=== PATIENT | male | born 1955 | race Hispanic/Latino ===

== ENCOUNTER 2016-11-27 13:21 | Emergency (ER) | payer MEDICARE, OTHER ==
[2016-11-27 13:21] VITALS: BMI 28.0
[2016-11-27 13:27] VITALS: BP 129/87; TEMP 98; O2SAT 100
--- NOTE | 2016-11-27 14:23 | ED PDOC ---
HPI: General Adult Time Seen by Provider: 11/27/16 13:25 Chief Complaint (Nursing): Weakness/Neurological Deficit Chief Complaint (Provider): Weakness History Per: Patient, Family (Brother) History/Exam Limitations: no limitations Current Symptoms Are (Timing): Still Present Additional Complaint(s): Guicho is a 61 y/o male brought to the ED by brother for evaluation of bed sore on his back. Per brother, patient has a history of limited mobility which he attributes to patient's chronic sleeping pill usage. however pt has recently been weaned off those meds. Patient has generalized weakness but denies any pain , fever, or vomiting. Brother's main concern is the back sore. Patient is not receiving any home health care. PMD in [place] prescribed a steroid cream, with minimal relief. pt denies any complaints at si time. PMD: aGy Saunders Past Medical History Reviewed: Historical Data, Nursing Documentation, Vital Signs Vital Signs: Last Vital Signs Temp 98.0 F 11/27/16 13:25 Pulse 74 11/27/16 14:45 Resp 16 11/27/16 16:45 BP 129/87 11/27/16 13:25 Pulse Ox 100 11/27/16 16:37 - Medical History PMH: Seizures (epilepsy for many years) Denies: Arthritis, Asthma, Atrial Fibrillation, CHF, COPD, Diabetes, HTN, Hypercholesterolemia Other PMH: chronic sleeping pill usage - Surgical History Surgical History: Back Surgery Denies: CABG, Pacemaker - Family History Family History: States: CAD - Living Arrangements Living Arrangements: With Family - Social History Current smoker - smoking cessation education provided: No Alcohol: None Drugs: Denies - Home Medications Home Medications: Ambulatory Orders Medication Instructions Recorded Clonazepam [Klonopin] 0.5 mg PO TID 04/25/16 Levetiracetam [Keppra] 1,500 mg PO BID 04/25/16 OLANZapine [Zyprexa] 10 mg PO HS 04/25/16 Topiramate [Topamax] 200 mg PO BID 04/25/16 Zolpidem [Ambien] 15 mg PO HS 04/25/16 - Allergies Allergies/Adverse Reactions: Allergies Allergy/AdvReac Type Severity Reaction Status Date / Time No Known Allergies Allergy Verified 11/27/16 13:25 Review of Systems ROS Statement: Except As Marked, All Systems Reviewed And Found Negative Constitutional: Negative for: Fever Gastrointestinal: Negative for: Vomiting Musculoskeletal: Negative for: Other (Pain) Skin: Positive for: Lesions (Bed sore on back) Neurological: Positive for: Weakness (generalized) Physical Exam - Reviewed Nursing Documentation Reviewed: Yes Vital Signs Reviewed: Yes - Physical Exam Appears: Positive for: Non-toxic, No Acute Distress (Apppears slightly stiff) Head Exam: Positive for: ATRAUMATIC, NORMAL INSPECTION, NORMOCEPHALIC Skin: Positive for: Normal Color, Warm, Dry Eye Exam: Positive for: EOMI, Normal appearance, PERRL Neck: Positive for: Normal, Painless ROM, Supple Cardiovascular/Chest: Positive for: Regular Rate, Rhythm. Negative for: Murmur Respiratory: Positive for: Normal Breath Sounds. Negative for: Accessory Muscle Use Gastrointestinal/Abdominal: Positive for: Normal Exam, Soft. Negative for: Tenderness Back: Positive for: Other (stage I sacral ulcer, no dischargem, no cellulitis) Extremity: Positive for: Normal ROM, Other (moving all four extremities). Negative for: Tenderness, Deformity Neurologic/Psych: Positive for: Alert (x3), dining service worker II-XII, Oriented - Laboratory Results Result Diagrams: 11/27/16 14:45 11/27/16 14:45 - ECG O2 Sat by Pulse Oximetry: 100 (RA) Pulse Ox Interpretation: Normal Medical Decision Making Medical Decision Making: Time: 13:57 Initial Plan:bed sore encouraged pt to continue to follow up with primary doctor --Blood work --Pending reevaluation and disposition 1635 labs show no signs of infection pt afebrile pt feels fine on reevaluation discussed plan with pt and son and they are agreeable to dc pt and outpt follow up -Outpatient social studies department chair information sheet given to pt Scribe Attestation: Documented by Shira Drummond & Biju Pringle, acting as a scribe for Haviva Y Ria MD Provider Scribe Attestation: All medical record entries made by the Scribe were at my direction and personally dictated by me. I have reviewed the chart and agree that the record accurately reflects my personal performance of the history, physical exam, medical decision making, and the department course for this patient. I have also personally directed, reviewed, and agree with the discharge instructions and disposition. Disposition - Clinical Impression Clinical Impression: Sacral ulcer - Patient ED Disposition Is Patient to be Admitted: No Counseled Patient/Family Regarding: Studies Performed, Diagnosis, Need For Followup - Disposition Referrals: [facility] [Outside] [facility] [Outside] [facility] [Outside] Disposition: Routine/Home Disposition Time: 15:00 Condition: IMPROVED Additional Instructions: follow up with your primary doctor in 1-2 days return to the ED with any worsening or concerning symptoms. Instructions: Acute Wound Care (ED) Forms: [employer] (Syrian)
[2016-11-27 14:55] VITALS: PULSE 74
[2016-11-27 15:05] LABS: BASO % 0.5 % (0.0-2.0); EOS # 0.1 K/uL (0.0-0.7); EOS % 1.7 % (0.0-4.0); HEMATOCRIT 38.5 % (35.0-51.0); LYMPH # 1.8 K/uL (1.0-4.3); LYMPH % 21.3 % (20.0-40.0); MEAN CELL VOLUME 91.3 fl (80.0-94.0); MEAN CORPUSCULAR HEMOGLOBIN 30.2 pg (27.0-31.0); MEAN CORPUSCULAR HGB CONC 33.1 g/dL (33.0-37.0); MEAN PLATELET VOLUME 8.1 fl (7.2-11.7); MONO # 0.9 K/uL (0.0-0.8); MONO % 10.3 % (0.0-10.0); NEUT # 5.7 K/uL (1.8-7.0); NEUT % 66.2 % (50.0-75.0); RED CELL DISTRIBUTION WIDTH 14.4 % (11.5-14.5); WHITE BLOOD COUNT 8.6 K/uL (4.8-10.8)
[2016-11-27 15:19] LABS: ALB/GLOB RATIO 1.4 (1.0-2.1); ALKALINE PHOSPHATASE 78 U/L (38-126); ALT/SGPT 44 U/L (21-72); AST/SGOT 127 U/L (17-59); BILIRUBIN,TOTAL 0.7 mg/dl (0.2-1.3); BLOOD UREA NITROGEN 18 mg/dl (9-20); CALCIUM 9.6 mg/dL (8.4-10.2); CARBON DIOXIDE 23 mmol/L (22-30); CHLORIDE 106 mmol/L (98-107); GFR AFRICAN-AMERICAN > 60; GLUCOSE,RANDOM 91 mg/dL (75-110); SODIUM 139 mmol/l (132-148); TOTAL PROTEIN 7.2 G/DL (6.3-8.2)
[2016-11-27 15:20] LABS: POTASSIUM 4.5 MMOL/L (3.6-5.0)
[2016-11-27 16:47] VITALS: RESP 16
== END 2016-11-27 16:45 | disposition home or self-care (01) ==
LOC: H.ER 13:21
DX: L98.429 Non-pressure chronic ulcer of back with unspecified severity (principal)

== ENCOUNTER 2016-11-30 14:10 | Emergency (ER) | payer MEDICARE, OTHER ==
[2016-11-30 14:10] VITALS: BMI 28.0
[2016-11-30 14:15] VITALS: RESP 18
[2016-11-30 15:02] LABS: VENOUS BLOOD GAS BASE EXCESS 0.6 mmol/L (0.0-2.0); VENOUS BLOOD GAS PCO2 47 mmHg (40-60); VENOUS BLOOD PH 7.36 (7.32-7.43)
--- NOTE | 2016-11-30 15:18 | ED PDOC ---
Syncope/Near Syncope/Dizziness Time Seen by Provider: 11/30/16 14:17 Chief Complaint (Nursing): Weakness/Neurological Deficit Chief Complaint (Provider): Weakness/Neurological Deficit History Per: Patient, Family (brother) History/Exam Limitations: no limitations Onset/Duration Of Symptoms: Days (x4) Current Symptoms Are (Timing): Still Present Additional Complaint(s): Guicho Blandon is a 61 year old male with previous medical history of seizures , insomnia, cervical spine disease and substance abuse, who presents to the emergency department, accompanied by his brother for a evaluation of generalized weakness associated with right sequelae wound ongoing for 4 days. Denied any fever, chills, chest pain, shortness of breath, nausea, vomiting or abdomen pain. Patient's brother reported that patient progressively less active and concerned for possible stroke. PMD: none provided Past Medical History Reviewed: Historical Data, Nursing Documentation, Vital Signs Vital Signs: Last Vital Signs Temp 98.0 F 11/30/16 14:13 Pulse 91 H 11/30/16 14:13 Resp 18 11/30/16 14:13 BP 155/89 H 11/30/16 14:13 Pulse Ox 99 11/30/16 14:13 - Medical History PMH: Seizures (epilepsy for many years) Denies: Arthritis, Asthma, Atrial Fibrillation, CHF, COPD, Diabetes, HTN, Hypercholesterolemia - Surgical History Surgical History: Back Surgery Denies: CABG, Pacemaker - Family History Family History: States: CAD - Social History Current smoker - smoking cessation education provided: No Alcohol: None Drugs: Prescription medications (xanax) - Home Medications Home Medications: Ambulatory Orders Medication Instructions Recorded Clonazepam [Klonopin] 0.5 mg PO TID 04/25/16 Levetiracetam [Keppra] 1,500 mg PO BID 04/25/16 Topiramate [Topamax] 200 mg PO BID 04/25/16 Zolpidem [Ambien] 15 mg PO HS 04/25/16 - Allergies Allergies/Adverse Reactions: Allergies Allergy/AdvReac Type Severity Reaction Status Date / Time No Known Allergies Allergy Verified 11/27/16 13:25 Review of Systems ROS Statement: Except As Marked, All Systems Reviewed And Found Negative Constitutional: Positive for: Weakness (generalized). Negative for: Fever, Chills Cardiovascular: Negative for: Chest Pain Respiratory: Negative for: Shortness of Breath Gastrointestinal: Positive for: Rectal Pain (right sequelae wound). Negative for: Nausea, Vomiting, Abdominal Pain Physical Exam - Reviewed Nursing Documentation Reviewed: Yes Vital Signs Reviewed: Yes - Physical Exam Appears: Positive for: Well, Non-toxic, No Acute Distress Head Exam: Positive for: ATRAUMATIC, NORMAL INSPECTION, NORMOCEPHALIC Eye Exam: Positive for: Normal appearance, EOMI (normal visual field), PERRL. Negative for: Nystagmus Neck: Positive for: Limited ROM (permanent flex of neck due to c-spine disease) . Negative for: Normal Cardiovascular/Chest: Positive for: Regular Rate, Rhythm. Negative for: Chest Non Tender Respiratory: Positive for: Normal Breath Sounds. Negative for: Respiratory Distress Gastrointestinal/Abdominal: Positive for: Normal Exam, Bowel Sounds, Soft. Negative for: Tenderness Neurologic/Psych: Positive for: Alert (and awake), sanitation lead II-XII, Oriented. Negative for: Motor/Sensory Deficits, Aphasia - Laboratory Results Result Diagrams: 11/30/16 14:35 11/30/16 14:35 - ECG O2 Sat by Pulse Oximetry: 99 (RA) Pulse Ox Interpretation: Normal Medical Decision Making Medical Decision Making: Initial Impression: Generalized weakness Differential Diagnosis: Infection; Electrolyte abnormalities Initial Plan: * CT head without contrast * EKG * Alcohol serum * ProBNP * Labs * Drug screen, urine * Troponin I * Urine dipstick * PTT * Patient * Chest x-ray * Blood culture * Urine culture * Wound culture * Accuchek * Urinalysis Time: 1601 --CT head FINDINGS: HEMORRHAGE: No acute parenchymal, subarachnoid or extra-axial hemorrhage. BRAIN: Small elliptical shaped area of low attenuation right frontal subcortical white matter may represent a chronic infarct. There are several tiny -punctate calcifications seen scattered throughout both cerebral hemispheres nonspecific. Clinical correlation recommended. No evidence of parenchymal nor extra-axial mass or collection. Mild generalized volume loss. VENTRICLES: No obstructive hydrocephalus. CALVARIUM: There are no acute calvarial fractures. PARANASAL SINUSES: Unremarkable as visualized. No significant inflammatory changes. MASTOID AIR CELLS: Unremarkable as visualized. No inflammatory changes. OTHER FINDINGS: None. IMPRESSION: No acute intracranial hemorrhage. On small elliptical shaped low-attenuation focus right frontal subcortical white matter could represent chronic infarct. There are several tiny -punctate nonspecific calcifications scattered throughout both cerebral hemispheres right greater than left of uncertain etiology. Clinical correlation with history is recommended. Time: 1605 --CXR FINDINGS: LUNGS: Did appears to be some minor linear atelectasis and or scarring changes left lung base and left CP angle region. . Remaining lung echeverria clear. PLEURA: No effusion or apparent pneumothorax. CARDIOVASCULAR: Heart size is within range of normal. . In situ pacemaker. OSSEOUS STRUCTURES: No significant abnormalities. VISUALIZED UPPER ABDOMEN: Normal. OTHER FINDINGS: None. IMPRESSION: Limited study. Left lower lobe atelectasis and or scarring Scribe Attestation: Documented by Nicole Ahn, acting as a scribe for Monalisa Alan MD. Provider Scribe Attestation: All medical record entries made by the Scribe were at my direction and personally dictated by me. I have reviewed the chart and agree that the record accurately reflects my personal performance of the history, physical exam, medical decision making, and the department course for this patient. I have also personally directed, reviewed, and agree with the discharge instructions and disposition. Case d/w family and patient. There is no evidence of acute illness. Patient is clinically stable. Will discharge. Family will take him to Dr. Castaneda Disposition - Clinical Impression Clinical Impression: Generalized muscle weakness, Pressure ulcer, sacrum, Seizure disorder - Patient ED Disposition Is Patient to be Admitted: No Doctor Will See Patient In The: Office Counseled Patient/Family Regarding: Diagnosis, Need For Followup - Disposition Referrals: Moses Castaneda MD [Staff Provider] - [facility] [Outside] Disposition: Routine/Home Disposition Time: 18:00 Condition: STABLE Forms: [employer] (Rwandan) - POA Present On Arrival: Pressure Ulcer
[2016-11-30 15:20] LABS: BASO % 0.2 % (0.0-2.0); EOS # 0.1 K/uL (0.0-0.7); EOS % 0.7 % (0.0-4.0); LYMPH # 1.3 K/uL (1.0-4.3); LYMPH % 16.1 % (20.0-40.0); MEAN CELL VOLUME 91.3 fl (80.0-94.0); MEAN CORPUSCULAR HEMOGLOBIN 30.5 pg (27.0-31.0); MEAN CORPUSCULAR HGB CONC 33.4 g/dL (33.0-37.0); MEAN PLATELET VOLUME 7.5 fl (7.2-11.7); MONO # 0.9 K/uL (0.0-0.8); NEUT # 5.9 K/uL (1.8-7.0); NRBC % 0.1 % (0.0-0.0); RED CELL DISTRIBUTION WIDTH 14.3 % (11.5-14.5); WHITE BLOOD COUNT 8.2 K/uL (4.8-10.8)
[2016-11-30 15:26] LABS: RBC URINE 176 /hpf (0-3); URINE BILIRUBIN NEGATIVE (NEGATIVE); URINE BLOOD MODERATE (NEGATIVE); URINE COLOR AMBER (YELLOW); URINE GLUCOSE (UA) NEG (Normal); URINE KETONE 20 mg/dL (NEGATIVE); URINE LEUKOCYTE ESTERASE TRACE Leu/uL (Negative); URINE PROTEIN 100 mg/dL (NEGATIVE); URINE UROBILINOGEN 0.2-1.0 mg/dL (0.2-1.0); WBC URINE 3 /hpf (0-5)
[2016-11-30 15:34] LABS: ALB/GLOB RATIO 1.5 (1.0-2.1); ALCOHOL SERUM < 10 mg/dl (0-10); ALKALINE PHOSPHATASE 79 U/L (38-126); ALT/SGPT 58 U/L (21-72); AST/SGOT 50 U/L (17-59); BILIRUBIN,TOTAL 0.4 mg/dl (0.2-1.3); BLOOD UREA NITROGEN 20 mg/dl (9-20); CALCIUM 9.7 mg/dL (8.4-10.2); CARBON DIOXIDE 23 mmol/L (22-30); CHLORIDE 107 mmol/L (98-107); GFR AFRICAN-AMERICAN > 60; GLUCOSE,RANDOM 109 mg/dL (75-110); POTASSIUM 3.8 MMOL/L (3.6-5.0); SODIUM 142 mmol/l (132-148)
[2016-11-30 15:42] LABS: PARTIAL THROMBOPLASTIN TIME 26.7 Seconds (25.6-37.1)
[2016-11-30 15:51] VITALS: BP 131/76; PULSE 82; TEMP 97.6
--- NOTE | 2016-11-30 16:03 | CT ---
PROCEDURE: CT HEAD WITHOUT CONTRAST. HISTORY: gen weakness COMPARISON: None available. TECHNIQUE: Axial computed tomography images were obtained through the head/brain without intravenous contrast. Radiation dose: Total exam DLP = 1765.97 mGy-cm. This CT exam was performed using one or more of the following dose reduction techniques: Automated exposure control, adjustment of the mA and/or kV according to patient size, and/or use of iterative reconstruction technique. FINDINGS: HEMORRHAGE: No acute parenchymal, subarachnoid or extra-axial hemorrhage. BRAIN: Small elliptical shaped area of low attenuation right frontal subcortical white matter may represent a chronic infarct. There are several tiny -punctate calcifications seen scattered throughout both cerebral hemispheres nonspecific. Clinical correlation recommended. No evidence of parenchymal nor extra-axial mass or collection. Mild generalized volume loss. VENTRICLES: No obstructive hydrocephalus. CALVARIUM: There are no acute calvarial fractures. PARANASAL SINUSES: Unremarkable as visualized. No significant inflammatory changes. MASTOID AIR CELLS: Unremarkable as visualized. No inflammatory changes. OTHER FINDINGS: None. IMPRESSION: No acute intracranial hemorrhage. On small elliptical shaped low-attenuation focus right frontal subcortical white matter could represent chronic infarct. There are several tiny -punctate nonspecific calcifications scattered throughout both cerebral hemispheres right greater than left of uncertain etiology. Clinical correlation with history is recommended.
--- NOTE | 2016-11-30 16:06 | RAD ---
HISTORY: Weakness. COMPARISON: No prior. TECHNIQUE: AP and lateral sitting erect views performed. Note that the examination is limited with obscuration of the lung apices bilaterally due to overlying facial soft tissue and mandible artifact. Lateral view is also limited due to overlapping upper extremities which partially obscure the anterior thorax. FINDINGS: LUNGS: Did appears to be some minor linear atelectasis and or scarring changes left lung base and left CP angle region. . Remaining lung echeverria clear. PLEURA: No effusion or apparent pneumothorax. CARDIOVASCULAR: Heart size is within range of normal. . In situ pacemaker. OSSEOUS STRUCTURES: No significant abnormalities. VISUALIZED UPPER ABDOMEN: Normal. OTHER FINDINGS: None. IMPRESSION: Limited study. Left lower lobe atelectasis and or scarring
[2016-11-30 16:07] VITALS: O2SAT 99
--- NOTE | 2016-12-01 21:11 | CARD ---
APPROVED REPORT EKG Measurement Heart [id number] <Conclusion> Sinus rhythm Low voltage QRS Left posterior fascicular block Abnormal ECG
== END 2016-11-30 19:12 | disposition home or self-care (01) ==
LOC: H.ER 14:10
DX: L89.159 Pressure ulcer of sacral region, unspecified stage (principal); G40.909 Epilepsy, unspecified, not intractable, without status epilepticus
CPT/HCPCS: 70450; 71020; 80053; 81003; 82803; 82948; 83880; 84484; 85025; 85610; 85730; 87040; 87070; 87086; 93005; 99285; G0480

== ENCOUNTER 2017-10-20 13:35 | Emergency (ER) | payer MEDICARE, OTHER ==
[2017-10-20 13:35] VITALS: BMI 28.0
[2017-10-20 13:41] VITALS: TEMP 97.8; O2SAT 100
--- NOTE | 2017-10-20 13:55 | ED PDOC ---
HPI: Seizure Time Seen by Provider: 10/20/17 13:38 Chief Complaint (Nursing): Seizure Chief Complaint (Provider): seizure History Per: Patient, EMS, Family History/Exam Limitations: clinical condition Recent Seizure Activity Began: Just Before Arrival Number Of Seizures: One Length Of Seizures (Duration): Seconds (30) Quality Of Seizure: Generalized Precipitating Factor(s): None Associated Symptoms: Injury As A Result Of Seizure Activity (head). denies: Bit Tongue, Incontinence Of Urine Post-ictal Period: Yes Severity: Moderate Additional Complaint(s): 61yo male per EMS found [place] [address] near [address] [place] [address] had witnessed (bystander ) seizure. Patient amnestic to events. Brother states he thinks last seizure about 6months ago. Patient c/o mild head pain, remains post ictal on arrival but is able to state hes compliant w medication keppra for seizures last taken when he woke about 4am. PMD- does not recall, denies Dr Castaneda being PMD. neurologist in [facility] does not recall name on arrival Past Medical History Reviewed: Historical Data, Nursing Documentation, Vital Signs Vital Signs: Last Vital Signs Temp 97.8 F 10/20/17 13:38 Pulse 66 10/20/17 16:54 Resp 14 10/20/17 16:54 BP 118/72 10/20/17 16:54 Pulse Ox 100 10/20/17 18:32 - Medical History PMH: Seizures (epilepsy for many years) Denies: Arthritis, Asthma, Atrial Fibrillation, CHF, COPD, Diabetes, HTN, Hypercholesterolemia - Surgical History Surgical History: Back Surgery Denies: CABG, Pacemaker Other surgeries: weight loss surgery - Family History Family History: States: CAD - Social History Current smoker - smoking cessation education provided: No Alcohol: None - Home Medications Home Medications: Ambulatory Orders Medication Instructions Recorded Clonazepam [Clonazepam] 0.5 mg PO HS 10/20/17 Levetiracetam [Keppra] 750 mg PO BID 10/20/17 Zolpidem [Ambien] 10 mg PO HS 10/20/17 - Allergies Allergies/Adverse Reactions: Allergies Allergy/AdvReac Type Severity Reaction Status Date / Time No Known Allergies Allergy Verified 11/27/16 13:25 Review of Systems Review Of Systems: ROS cannot be obtained secondary to pt's inabilty to answer questions. (post ictal) Physical Exam - Reviewed Nursing Documentation Reviewed: Yes Vital Signs Reviewed: Yes - Physical Exam Appears: Positive for: Well, Non-toxic, No Acute Distress Head Exam: Negative for: ATRAUMATIC (+ 4cm superficial abrasion and scalp hematoma R pariteal occipital area, small abrasions L forehead), NORMAL INSPECTION Skin: Positive for: Normal Color, Warm, DRY Eye Exam: Positive for: EOMI, Normal appearance, PERRL ENT: Positive for: Normal ENT Inspection Neck: Positive for: Normal, Painless ROM, Supple. Negative for: Decreased ROM Cardiovascular/Chest: Positive for: Regular Rate, Rhythm Respiratory: Positive for: CNT, Normal Breath Sounds Pulses-Radial (L): 3+/4+ Pulses-Radial (R): 3+/4+ Gastrointestinal/Abdominal: Positive for: Soft. Negative for: Tenderness Back: Positive for: Normal Inspection Extremity: Positive for: Normal ROM. Negative for: Tenderness, Deformity, Swelling Neurologic/Psych: Positive for: Alert, Cerebellar Tests (slow to respond), Other (post ictal). Negative for: Oriented (confused to time), Motor/Sensory Deficits - Laboratory Results Result Diagrams: 10/20/17 14:05 10/20/17 14:05 - ECG O2 Sat by Pulse Oximetry: 100 Medical Decision Making Medical Decision Making: workup for seizure initiated in patient w long history of seizures, labs and imaging. Accession No. : [id number] Patient Name / ID : CT NELSON / [id number] Exam Date : 10/20/2017 15:23:39 ( Approved ) Study Comment : Sex / Age : M / 61Y Creator : Rc Lindo MD Dictator : Rc Lindo MD Nonprofit Financial Controller : Procurement Agent : Rc Lindo MD Approver2 : Report Date : 10/20/2017 16:22:48 My Comment : Date of service: 10/20/2017 PROCEDURE: CT Cervical Spine without contrast HISTORY: trauma r/o fx COMPARISON: None available. TECHNIQUE: Axial computed tomography images were obtained of the cervical spine without the use of intravenous contrast. Coronal and sagittal reformatted images were created and reviewed. Radiation dose: Total exam DLP = 343.93 mGy-cm. This CT exam was performed using one or more of the following dose reduction techniques: Automated exposure control, adjustment of the mA and/or kV according to patient size, and/or use of iterative reconstruction technique. FINDINGS: VERTEBRAE: No fracture. Normal alignment. No destructive bony lesion. DISCS/SPINAL CANAL/NEURAL FORAMINA: Narrowing of the C5-6 and C6-7 intervertebral disc spaces with osteophytes about these narrowed disc spaces, consistent with degenerative disc disease. PARASPINAL SOFT TISSUES: Multinodular goiter. Large nodule in lower pole left lobe of thyroid. Calcification bilaterally. Recommend correlation with thyroid ultrasound. OTHER FINDINGS: None. IMPRESSION: No fracture/ dislocation. Degenerative disc disease C5-6 and C6-7. Multinodular goiter. Correlate with thyroid ultrasound examination non emergently peer Accession No. : [id number] Patient Name / ID : CT NELSON / [id number] Exam Date : 10/20/2017 15:17:12 ( Approved ) Study Comment : Sex / Age : M / 61Y Creator : Rc Lindo MD Dictator : Rc Lindo MD Nonprofit Financial Controller : Procurement Agent : Rc Lindo MD Approver2 : Report Date : 10/20/2017 16:19:05 My Comment : Date of service: 10/20/2017 PROCEDURE: CT HEAD WITHOUT CONTRAST. HISTORY: r/o ICH COMPARISON: 11/30/2016 TECHNIQUE: Axial computed tomography images were obtained through the head/brain without intravenous contrast. Radiation dose: Total exam DLP = 963.18 mGy-cm. This CT exam was performed using one or more of the following dose reduction techniques: Automated exposure control, adjustment of the mA and/or kV according to patient size, and/or use of iterative reconstruction technique. FINDINGS: HEMORRHAGE: No intracranial hemorrhage. BRAIN: No mass effect or edema. Old lacunar infarct adjacent to the atrium of the left lateral ventricle unchanged from prior. Mild chronic white matter ischemic change adjacent to frontal horn right lateral ventricle. No evidence of acute infarct. VENTRICLES: Unremarkable. No hydrocephalus. CALVARIUM: Unremarkable. PARANASAL SINUSES: Unremarkable as visualized. No significant inflammatory changes. MASTOID AIR CELLS: Unremarkable as visualized. No inflammatory changes. OTHER FINDINGS: None. IMPRESSION: No intracranial hemorrhage. Remote lacunar infarct and chronic white matter ischemic change. labs reviewed and unremarkable XRays spine no fracture per radiologist CXR no acute disease per radiologist Pt monitored in ED 4+ hrs without return of seizure. Discussed w Dr Duran his neurologist will see in office saturday patient to stay with brother roxana, offered obs in hospital, refused. Ambulatory w stable gait Wound care provided to abrasions and bacitracin samples given head injury instructions provided Disposition - Clinical Impression Clinical Impression: Seizure, Head injury - Patient ED Disposition Is Patient to be Admitted: No Counseled Patient/Family Regarding: Studies Performed, Diagnosis, Need For Followup - Disposition Referrals: Elvin Duran MD [Staff Provider] - Disposition: Routine/Home Disposition Time: 15:30 Condition: STABLE Additional Instructions: Followup with Dr Duran in 1-2 days. Return to ER for any worse or new symptoms. Instructions: Postconcussion Syndrome, Closed Head Injury, Seizures Forms: [employer] (Upper Sorbian)
[2017-10-20 14:18] LABS: BASO % 0.3 % (0.0-2.0); EOS # 0.1 K/uL (0.0-0.7); EOS % 0.9 % (0.0-4.0); HEMOGLOBIN 12.7 g/dL (12.0-18.0); LYMPH # 3.2 K/uL (1.0-4.3); LYMPH % 36.7 % (20.0-40.0); MEAN CELL VOLUME 91.1 fl (80.0-94.0); MEAN CORPUSCULAR HGB CONC 32.9 g/dL (33.0-37.0); MEAN PLATELET VOLUME 7.4 fl (7.2-11.7); MONO # 0.6 K/uL (0.0-0.8); MONO % 6.9 % (0.0-10.0); NEUT # 4.8 K/uL (1.8-7.0); NEUT % 55.2 % (50.0-75.0); NRBC % 0.1 % (0.0-0.0); RBC 4.23 Mil/uL (4.40-5.90); RED CELL DISTRIBUTION WIDTH 13.6 % (11.5-14.5); WHITE BLOOD COUNT 8.6 K/uL (4.8-10.8)
[2017-10-20 14:27] LABS: ALB/GLOB RATIO 1.5 (1.0-2.1); ALBUMIN 4.4 g/dL (3.5-5.0); CALCIUM 9.2 mg/dL (8.4-10.2); GFR NON-AFRICAN AMERICAN > 60; INR 1.1 (0.9-1.2); PARTIAL THROMBOPLASTIN TIME 27.3 Seconds (25.6-37.1)
[2017-10-20 14:29] LABS: ALT/SGPT 22 U/L (21-72); AST/SGOT 44 U/L (17-59); BLOOD UREA NITROGEN 17 mg/dl (9-20)
--- NOTE | 2017-10-20 15:05 | CARD ---
APPROVED REPORT Date of service: 10/20/2017 EKG Measurement Heart [id number] <Conclusion> Normal sinus rhythm Normal ECG
[2017-10-20] MEDS ORDERED: Tdap Vaccine 0.5 ml Vial (10-64 yrs) IM ONE (16:11)
[2017-10-20] MEDS: Tdap Vaccine 0.5 ml Vial (10-64 yrs) IM ONE ×2 (16:19→16:25)
--- NOTE | 2017-10-20 16:20 | CT ---
Date of service: 10/20/2017 PROCEDURE: CT HEAD WITHOUT CONTRAST. HISTORY: r/o ICH COMPARISON: 11/30/2016 TECHNIQUE: Axial computed tomography images were obtained through the head/brain without intravenous contrast. Radiation dose: Total exam DLP = 963.18 mGy-cm. This CT exam was performed using one or more of the following dose reduction techniques: Automated exposure control, adjustment of the mA and/or kV according to patient size, and/or use of iterative reconstruction technique. FINDINGS: HEMORRHAGE: No intracranial hemorrhage. BRAIN: No mass effect or edema. Old lacunar infarct adjacent to the atrium of the left lateral ventricle unchanged from prior. Mild chronic white matter ischemic change adjacent to frontal horn right lateral ventricle. No evidence of acute infarct. VENTRICLES: Unremarkable. No hydrocephalus. CALVARIUM: Unremarkable. PARANASAL SINUSES: Unremarkable as visualized. No significant inflammatory changes. MASTOID AIR CELLS: Unremarkable as visualized. No inflammatory changes. OTHER FINDINGS: None. IMPRESSION: No intracranial hemorrhage. Remote lacunar infarct and chronic white matter ischemic change.
--- NOTE | 2017-10-20 16:24 | CT ---
Date of service: 10/20/2017 PROCEDURE: CT Cervical Spine without contrast HISTORY: trauma r/o fx COMPARISON: None available. TECHNIQUE: Axial computed tomography images were obtained of the cervical spine without the use of intravenous contrast. Coronal and sagittal reformatted images were created and reviewed. Radiation dose: Total exam DLP = 343.93 mGy-cm. This CT exam was performed using one or more of the following dose reduction techniques: Automated exposure control, adjustment of the mA and/or kV according to patient size, and/or use of iterative reconstruction technique. FINDINGS: VERTEBRAE: No fracture. Normal alignment. No destructive bony lesion. DISCS/SPINAL CANAL/NEURAL FORAMINA: Narrowing of the C5-6 and C6-7 intervertebral disc spaces with osteophytes about these narrowed disc spaces, consistent with degenerative disc disease. PARASPINAL SOFT TISSUES: Multinodular goiter. Large nodule in lower pole left lobe of thyroid. Calcification bilaterally. Recommend correlation with thyroid ultrasound. OTHER FINDINGS: None. IMPRESSION: No fracture/ dislocation. Degenerative disc disease C5-6 and C6-7. Multinodular goiter. Correlate with thyroid ultrasound examination non emergently peer
[2017-10-20 16:55] VITALS: BP 118/72; PULSE 66; RESP 14
--- NOTE | 2017-10-20 17:38 | RAD ---
Date of service: 10/20/2017 PROCEDURE: CHEST RADIOGRAPH, 1 VIEW HISTORY: seizure COMPARISON: 11/30/2016 FINDINGS: LUNGS: Clear. PLEURA: No pneumothorax or pleural fluid seen. CARDIOVASCULAR: Normal heart size. Electronic nodule overlies the left upper chest wall leads extending towards the cervical spine. OSSEOUS STRUCTURES: No significant abnormalities. VISUALIZED UPPER ABDOMEN: Normal. OTHER FINDINGS: None. IMPRESSION: No active disease.
--- NOTE | 2017-10-20 17:39 | RAD ---
Date of service: 10/20/2017 PROCEDURE: Radiographs of the Left Shoulder HISTORY: seizure shoulder pain COMPARISON: No prior. FINDINGS: BONES: No acute fracture. JOINTS: There is a bony excrescence arising from the inferior glenoid margin, possibly result of old trauma. Acromioclavicular articulation is intact. . SOFT TISSUES: Normal. OTHER FINDINGS: None. IMPRESSION: No acute fracture. Possible posttraumatic deformity inferior left glenoid.
--- NOTE | 2017-10-20 17:40 | RAD ---
Date of service: 10/20/2017 PROCEDURE: Radiographs of the Lumbar Spine. HISTORY: back pain COMPARISON: No prior. FINDINGS: BONES: Normal alignment. No listhesis. No fracture. DISC SPACES: Unremarkable. OTHER FINDINGS: None. IMPRESSION: Unremarkable radiographs of the lumbar spine.
--- NOTE | 2017-10-20 17:41 | RAD ---
Date of service: 10/20/2017 HISTORY: trauma COMPARISON: No prior. FINDINGS: BONES: Alignment maintained. No fracture. DISC SPACES: Normal. SOFT TISSUES: Normal. OTHER FINDINGS: None. IMPRESSION: Normal radiographs of the thoracic spine.
== END 2017-10-20 18:19 | disposition home or self-care (01) ==
LOC: H.ER 13:35
DX: G40.909 Epilepsy, unspecified, not intractable, without status epilepticus (principal); S09.90XA Unspecified injury of head, initial encounter; S00.01XA Abrasion of scalp, initial encounter; W19.XXXA Unspecified fall, initial encounter; Y92.89 Other specified places as the place of occurrence of the external cause; E04.2 Nontoxic multinodular goiter; Z86.73 Personal history of transient ischemic attack (TIA), and cerebral infarction without residual deficits
CPT/HCPCS: 70450; 71045; 72070; 72114; 72125; 73030; 80053; 82948; 84484; 85025; 85610; 85730; 93005; 99285; G0480

== ENCOUNTER 2018-01-16 02:32 | Inpatient (IN) | payer MEDICARE, OTHER ==
[2018-01-16 02:32] VITALS: BMI 28.0
[2018-01-16] MEDS ORDERED: Sodium Chloride 0.9% 1,000 ML IV STA (03:33)
--- NOTE | 2018-01-16 03:43 | ED PDOC ---
HPI: Psych/Substance Abuse Time Seen by Provider: 01/16/18 02:34 Chief Complaint (Nursing): Altered Mental Status Chief Complaint (Provider): Altered Mental Status ED Caveat: Acuity of Condition History Per: Family (brother) Onset/Duration Of Symptoms: Hrs (x 3) Current Symptoms Are (Timing): Still Present Suicide/Self Injury Attempted (Context): None Modifying Factor(s): Other (clonazepam) Additional Complaint(s): 62 year old male with a history of seizures, anxiety and depression presents to the ED for evaluation after overdosing on Clonazepam. Patient offers no history due to his altered mental status and clinical condition. His brother, who lives with the patient, provides the history and states he took 20 .5mg pills of Clonazepam around 11 pm last night. Patient's brother reports that he believes the patient is addicted to sleeping medications.he apparently goes from dr to dr obtaining different types of sleeping pills. he has multiple pills and bottles of remeron, cloazipin. apparetly pt awoke around 2 pm complaining of leg pain and telling his mother "I want to ". PMD: Dr. Gay Thorne Past Medical History Reviewed: Historical Data, Nursing Documentation, Vital Signs Vital Signs: Last Vital Signs Temp 98.7 F 01/16/18 02:49 Pulse 150 H 01/16/18 02:49 Resp 14 01/16/18 02:49 BP 170/85 H 01/16/18 02:49 Pulse Ox 98 01/16/18 02:49 - Medical History PMH: Seizures (epilepsy for many years) Denies: Arthritis, Asthma, Atrial Fibrillation, CHF, COPD, Diabetes, HTN, Hypercholesterolemia - Surgical History Surgical History: Back Surgery Denies: CABG, Pacemaker Other surgeries: gastric bypass - Family History Family History: States: CAD - Social History Current smoker - smoking cessation education provided: No Alcohol: None Drugs: Denies - Home Medications Home Medications: Ambulatory Orders Medication Instructions Recorded Clonazepam 0.5 mg PO HS 10/20/17 Levetiracetam [Keppra] 2 tab PO AC 10/20/17 Zolpidem [Ambien] 10 mg PO HS 10/20/17 DiphenhydrAMINE [Benadryl] 25 mg PO DAILY 01/16/18 Doxylamine Succinate [Unisom Sleep 1 tab PO HS 01/16/18 Aid] Eslicarbazepine Acetate [Aptiom] 400 mg PO DAILY 01/16/18 Lacosamide [Vimpat] 2 tab PO BID 01/16/18 Levetiracetam [Keppra] 3 tab PO HS 01/16/18 Mirtazapine [Remeron] 15 mg PO HS 01/16/18 RX: Alendronate [Fosamax] 70 mg PO QWK 01/16/18 Topiramate [Topamax] 200 mg PO BID 01/16/18 Zolpidem [Ambien] 10 mg PO HS 01/16/18 - Allergies Allergies/Adverse Reactions: Allergies Allergy/AdvReac Type Severity Reaction Status Date / Time No Known Allergies Allergy Verified 01/16/18 02:53 Review of Systems Review Of Systems: ROS cannot be obtained secondary to pt's inabilty to answer questions. Physical Exam - Reviewed Nursing Documentation Reviewed: Yes Vital Signs Reviewed: Yes - Physical Exam Appears: Positive for: Uncomfortable (very flat affect, somnolet, ) Head Exam: Positive for: ATRAUMATIC, NORMAL INSPECTION, NORMOCEPHALIC Skin: Positive for: Normal Color, Warm, Dry Eye Exam: Positive for: EOMI, Normal appearance, PERRL ENT: Positive for: Normal ENT Inspection Neck: Positive for: Normal, Painless ROM Cardiovascular/Chest: Positive for: Tachycardia Respiratory: Positive for: CNT, Normal Breath Sounds Gastrointestinal/Abdominal: Positive for: Normal Exam, Soft. Negative for: Tenderness Extremity: Positive for: Normal ROM. Negative for: Deformity Neurologic/Psych: Positive for: Other (somnolent; not responding to questions but to painful stimuli ). Negative for: Oriented - Laboratory Results Result Diagrams: 01/16/18 03:39 01/16/18 03:39 - ECG O2 Sat by Pulse Oximetry: 98 (RA) Pulse Ox Interpretation: Normal Medical Decision Making Medical Decision Makin Impression: overdose on meds, rule out infection, initial Plan: --Acetaminophen --Alcohol --CMP --magnesium --salicylate --UDS --NS IV --UA pt placed on 04-01 for possible suicide attempt. pts labs reviewed. ekg showed prolonged qt initially according to poision control pt should be observed 05:51 --Patient will be admitted as inpatient under 1:1 observation to the service of Dr. Vivas (collision repair technician). Diagnoses are overdose and depression. pt should be seen by psychiatriy as an inpt. pt unable to urinate. according to brother at bedside pt has history of bph, multiple attempts by RN to place catheter to no avail. 06:42 --Dr. Martino, urologist collision repair technician, will see patient in the ED to relieve urinary retention. -- Scribe Attestation: Documented by Mercedes Martinez acting as a scribe for Malcolm Rollins MD Provider Scribe Attestation: All medical record entries made by the Scribe were at my direction and personally dictated by me. I have reviewed the chart and agree that the record accurately reflects my personal performance of the history, physical exam, medical decision making, and the department course for this patient. I have also personally directed, reviewed, and agree with the discharge instructions and disposition. Disposition - Clinical Impression Clinical Impression: Medication overdose - Patient ED Disposition Is Patient to be Admitted: Yes Counseled Patient/Family Regarding: Studies Performed, Diagnosis - Disposition Disposition Time: 05:00 Condition: STABLE - Pt Status Changed To: Hospital Disposition Of: Inpatient - Admit Certification Admit to Inpatient:: After my assessment, the patient will require hospitaliz ation for at least two midnights. This is because of the severity of symptoms shown, intensity of services needed, and/or the medical risk in this patient being treated as an outpatient.
[2018-01-16 03:44] LABS: BASO # 0.1 K/uL (0.0-0.2); BASO % 0.8 % (0.0-2.0); EOS % 0.3 % (0.0-4.0); HEMOGLOBIN 12.9 g/dL (12.0-18.0); LYMPH # 5.4 K/uL (1.0-4.3); LYMPH % 30.8 % (20.0-40.0); MEAN CELL VOLUME 87.8 fl (80.0-94.0); MEAN CORPUSCULAR HEMOGLOBIN 29.3 pg (27.0-31.0); MEAN CORPUSCULAR HGB CONC 33.4 g/dL (33.0-37.0); MEAN PLATELET VOLUME 7.6 fl (7.2-11.7); MONO # 1.3 K/uL (0.0-0.8); MONO % 7.7 % (0.0-10.0); NEUT # 10.5 K/uL (1.8-7.0); NEUT % 60.4 % (50.0-75.0); NRBC % 0.1 % (0.0-0.0); RBC 4.4 Mil/uL (4.40-5.90); RED CELL DISTRIBUTION WIDTH 14.9 % (11.5-14.5); WHITE BLOOD COUNT 17.4 K/uL (4.8-10.8)
[2018-01-16 03:50] LABS: ACETAMINOPHEN < 10.0 ug/ml (10.0-30.0); SALICYLATE < 1.0 mg/dl
[2018-01-16 03:53] LABS: BLOOD UREA NITROGEN 22 mg/dl (9-20); CALCIUM 9.3 mg/dL (8.4-10.2); GFR NON-AFRICAN AMERICAN > 60
[2018-01-16 04:02] LABS: ALB/GLOB RATIO 1.1 (1.0-2.1); ALBUMIN 4.4 g/dL (3.5-5.0); ALT/SGPT 26 U/L (21-72); AST/SGOT 52 U/L (17-59)
[2018-01-16 08:34] LABS: URINE BACTERIA OCC (<OCC); URINE BILIRUBIN NEGATIVE (NEGATIVE); URINE BLOOD MODERATE (NEGATIVE); URINE CLARITY CLOUDY (Clear); URINE COLOR YELLOW (YELLOW); URINE GLUCOSE (UA) NEG (Normal); URINE LEUKOCYTE ESTERASE LARGE Leu/uL (Negative); URINE PROTEIN 30 mg/dL (NEGATIVE); URINE UROBILINOGEN 0.2-1.0 mg/dL (0.2-1.0); WBC CLUMPS FEW /hpf
[2018-01-16 08:40] LABS: PHENCYCLIDINE, UR NEGATIVE (NEGATIVE)
[2018-01-16 08:44] LABS: BARBITURATES, UR NEGATIVE (NEGATIVE); BENZODIAZEPINES, UR NEGATIVE (NEGATIVE); OPIATES, UR NEGATIVE (NEGATIVE)
[2018-01-16] MEDS ORDERED: cefTRIAXone (Rocephin) 1 gm Inj ONE (09:12)
--- NOTE | 2018-01-16 10:00 | CARD ---
APPROVED REPORT Date of service: 01/16/2018 EKG Measurement Heart [id number] [id number] <Conclusion> Sinus tachycardia Possible Inferior infarct, age undetermined Abnormal ECG
--- NOTE | 2018-01-16 10:19 | RAD ---
Date of service: 01/16/2018 HISTORY: elev wbc COMPARISON: 10/20/2017. FINDINGS: LUNGS: The lungs are well inflated and the right lung is clear. There is left basilar atelectasis. PLEURA: No pleural effusions or pneumothorax. CARDIOVASCULAR: The heart is normal in size. No aortic atherosclerotic calcification present. There is left-sided battery pack. OSSEOUS STRUCTURES: Within normal limits for the patient's age. VISUALIZED UPPER ABDOMEN: Normal. OTHER FINDINGS: None. IMPRESSION: No active pulmonary disease.
--- NOTE | 2018-01-16 11:20 | CP.PCM.CON ---
History of Present Illness - History of Present Illness History of Present Illness: Psychiatry consult note CC: "I took 20 sleeping pills." HPI: 62 yo male w/ h/o seizure disorder, herniated disks, anxiety, depression, presents to the ED after he overdosed on pills. As per patient, he took 20 over the counter "sleeping pills" (benadryl?). He denies that he took them as a suicide attempt, stating "I just wanted to fall asleep very fast." When asked if he told his family that wanted to , he admitted to stating this, stating "I always say I want to ." Patient also takes Klonopin 0.5 mg PO Daily. As per records, family expressed concern that the patient may be addicted to sleeping medications and goes to various doctors to obtain different prescriptions. Family stated he has several bottles of Remeron and Klonopin at home. At this time, the patient is minimizing his symptoms and is not agreeable to inpatient psychiatric admission. A + O x 4. PPHx: Denies h/o suicide attempts or psychiatric hospitalizations PMHx: Seizure Disorder, herniated disks All: NKDA FHx: Denies family h/o mental illness SHx: From [place], lives with mother, on SSD, denies drugs/etoh/cig use Impression: 62 yo male admitted s/p intentional overdose of medication. Patient is currently minimizing his symptoms and is refusing psychiatric treatment. Patient has poor insight/judgment at this time. Recommend: -Screen for involuntary psychiatric admission when patient is medically stable -Continue 1:1 for safety Past Patient History - Past Medical History & Family History Past Medical History?: Yes - Past Social History Smoking Status: Never Smoked - CARDIAC Hx Cardiac Disorders: No - PULMONARY Hx Respiratory Disorders: No Hx Asthma: No Hx Chronic Obstructive Pulmonary Disease (COPD): No - NEUROLOGICAL Hx Neurological Disorder: Yes Hx Seizures: Yes - HEENT Hx HEENT Problems: No - RENAL Hx Chronic Kidney Disease: No - ENDOCRINE/METABOLIC Hx Endocrine Disorders: No - HEMATOLOGICAL/ONCOLOGICAL Hx Blood Disorders: No Hx AIDS: No Hx Human Immunodeficiency Virus (HIV): No - INTEGUMENTARY Hx Dermatological Problems: No - MUSCULOSKELETAL/RHEUMATOLOGICAL Hx Musculoskeletal Disorders: Yes Hx Back Pain: Yes Hx Falls: No - GASTROINTESTINAL Hx Gastrointestinal Disorders: Yes Hx Constipation: Yes - GENITOURINARY/GYNECOLOGICAL Hx Genitourinary Disorders: No - PSYCHIATRIC Hx Psychophysiologic Disorder: Yes Hx Anxiety: Yes Hx Depression: Yes Hx Substance Use: No - SURGICAL HISTORY Hx Surgeries: Yes Hx Coronary Artery Bypass Graft: No Hx Gastric Bypass Surgery: Yes - ANESTHESIA Hx Anesthesia: Yes Hx Anesthesia Reactions: No Hx Malignant Hyperthermia: No Has any member of the family had a problem w/ anesthesia?: No Meds Allergies/Adverse Reactions: Allergies Allergy/AdvReac Type Severity Reaction Status Date / Time No Known Allergies Allergy Verified 01/16/18 02:53 - Medications Medications: Current Medications Ceftriaxone Sodium 1 gm/ (Sodium Chloride) 100 mls @ 100 mls/hr IVPB DAILY DERRICK; Protocol Lacosamide (Vimpat) 100 mg PO BID DERRICK Tamsulosin HCl (Flomax) 0.8 mg PO DAILY DERRICK Topiramate (Topamax) 200 mg PO BID DERRICK Results - Vital Signs Recent Vital Signs: Last Vital Signs Temp 97.1 F L 01/16/18 10:13 Pulse 76 01/16/18 10:13 Resp 18 01/16/18 10:14 BP 127/83 01/16/18 10:13 Pulse Ox 95 01/16/18 10:14 - Labs Result Diagrams: 01/16/18 03:39 01/16/18 03:39 Labs: Laboratory Results - last 24 hr 01/16/18 01/16/18 01/16/18 03:13 03:39 03:39 WBC RBC Hgb Hct MCV MCH MCHC RDW Plt Count MPV Neut % (Auto) Lymph % (Auto) [place] % (Auto) Eos % (Auto) Baso % (Auto) Neut # (Auto) Lymph # (Auto) [place] # (Auto) Eos # (Auto) Baso # (Auto) Sodium 140 Potassium 4.6 Chloride 106 Carbon Dioxide 21 L Anion Gap 18 BUN 22 H Creatinine 0.8 Est GFR ( Amer) > 60 Est GFR (Non-Af Amer) > 60 POC Glucose (mg/dL) 127 H Random Glucose 122 H Calcium 9.3 Magnesium 2.0 Total Bilirubin 0.7 AST 52 ALT 26 Alkaline Phosphatase 101 Troponin I < 0.0120 Total Protein 8.6 H Albumin 4.4 Globulin 4.1 H Albumin/Globulin Ratio 1.1 Urine Color Urine Clarity Urine pH Ur Specific [place] Urine Protein Urine Glucose (UA) Urine Ketones Urine Blood Urine Nitrate Urine Bilirubin Urine Urobilinogen Ur Leukocyte Esterase Urine RBC (Auto) Urine WBC Clumps (Auto) Urine Microscopic WBC Urine Bacteria Salicylates < 1.0 Urine Opiates Screen Urine Methadone Screen Acetaminophen < 10.0 L Ur Barbiturates Screen Ur Phencyclidine Scrn Ur Amphetamines Screen U Benzodiazepines Scrn U Oth Cocaine Metabols U Cannabinoids Screen Alcohol, Quantitative < 10 01/16/18 01/16/18 01/16/18 03:39 07:35 07:35 WBC 17.4 H D RBC 4.40 Hgb 12.9 Hct 38.6 MCV 87.8 D MCH 29.3 MCHC 33.4 RDW 14.9 H Plt Count 234 MPV 7.6 Neut % (Auto) 60.4 Lymph % (Auto) 30.8 [place] % (Auto) 7.7 Eos % (Auto) 0.3 Baso % (Auto) 0.8 Neut # (Auto) 10.5 H Lymph # (Auto) 5.4 H [place] # (Auto) 1.3 H Eos # (Auto) 0.0 Baso # (Auto) 0.1 Sodium Potassium Chloride Carbon Dioxide Anion Gap BUN Creatinine Est GFR ( Amer) Est GFR (Non-Af Amer) POC Glucose (mg/dL) Random Glucose Calcium Magnesium Total Bilirubin AST ALT Alkaline Phosphatase Troponin I Total Protein Albumin Globulin Albumin/Globulin Ratio Urine Color Yellow Urine Clarity Cloudy Urine pH 5.0 Ur Specific [place] 1.016 Urine Protein 30 Urine Glucose (UA) Neg Urine Ketones Trace Urine Blood Moderate Urine Nitrate Negative Urine Bilirubin Negative Urine Urobilinogen 0.2-1.0 Ur Leukocyte Esterase Large Urine RBC (Auto) 91 H Urine WBC Clumps (Auto) Few H Urine Microscopic WBC 234 H Urine Bacteria Occ H Salicylates Urine Opiates Screen Negative Urine Methadone Screen Negative Acetaminophen Ur Barbiturates Screen Negative Ur Phencyclidine Scrn Negative Ur Amphetamines Screen Negative U Benzodiazepines Scrn Negative U Oth Cocaine Metabols Negative U Cannabinoids Screen Negative Alcohol, Quantitative
--- NOTE | 2018-01-16 16:34 | CP.PCM.HP ---
History of Present Illness - History of Present Illness History of Present Illness: CC: AMS. 62 y/o M Hx of Seizure Disorder, Herniated Disk, [facility] and Tx of AMS x 3 hrs [facility] [facility] [employer] with no improvement, associated to intentional overdose on 20 tabs of over the counter sleeping pills (unknown name), Pt disoriented, confused and incomprehensible speech. Worsening symptoms: Abdominal pain, intermittent, lower medial abdomen, aching, pressure type, severe intensity, initially 8:10, alleviated by urinating. Found with abnormal U/A, consistent with UTI. Aggravated factor: Refusing Psychiatry Tx. CXR: No active disease. EKG: Sinus tachycardia, possible inferior infarct, age undetermined. Present on Admission - Present on Admission Any Indicators Present on Admission: No Review of Systems - Constitutional Constitutional: Other (negative) - EENT Eyes: Requires Corrective Lenses Ears: Other (negative) Nose/Mouth/Throat: Other (negative) - Cardiovascular Cardiovascular: Rapid Heart Rate - Respiratory Respiratory: Other (negative) - Gastrointestinal Gastrointestinal: Abdominal Pain - Genitourinary Genitourinary: Other (negative) - Musculoskeletal Musculoskeletal: Other (negative) - Integumentary Integumentary: Other (negative) - Neurological Neurological: Abnormal Speech (2nd to clinical condition), Confusion (2nd to clinical condition), Weakness - Psychiatric Psychiatric: Depression - Endocrine Endocrine: Other (negative) - Hematologic/Lymphatic Hematologic: Other (negative) Past Patient History - Past Medical History & Family History Past Medical History?: Yes Pertinent Family History: Hx CAD - Past Social History Smoking Status: Never Smoked Alcohol: None Drugs: Denies Home Situation {Lives}: With Family - CARDIAC Hx Cardiac Disorders: No - PULMONARY Hx Respiratory Disorders: No Hx Asthma: No Hx Chronic Obstructive Pulmonary Disease (COPD): No - NEUROLOGICAL Hx Neurological Disorder: Yes Hx Seizures: Yes - HEENT Hx HEENT Problems: No - RENAL Hx Chronic Kidney Disease: No - ENDOCRINE/METABOLIC Hx Endocrine Disorders: No - HEMATOLOGICAL/ONCOLOGICAL Hx Blood Disorders: No Hx AIDS: No Hx Human Immunodeficiency Virus (HIV): No - INTEGUMENTARY Hx Dermatological Problems: No - MUSCULOSKELETAL/RHEUMATOLOGICAL Hx Musculoskeletal Disorders: Yes Hx Back Pain: Yes Hx Falls: No Hx Osteoporosis: Yes - GASTROINTESTINAL Hx Gastrointestinal Disorders: Yes Hx Constipation: Yes - GENITOURINARY/GYNECOLOGICAL Hx Genitourinary Disorders: No - PSYCHIATRIC Hx Psychophysiologic Disorder: Yes Hx Anxiety: Yes Hx Depression: Yes Hx Substance Use: No - SURGICAL HISTORY Hx Surgeries: Yes Hx Coronary Artery Bypass Graft: No Hx Gastric Bypass Surgery: Yes - ANESTHESIA Hx Anesthesia: Yes Hx Anesthesia Reactions: No Hx Malignant Hyperthermia: No Has any member of the family had a problem w/ anesthesia?: No Meds Allergies/Adverse Reactions: Allergies Allergy/AdvReac Type Severity Reaction Status Date / Time No Known Allergies Allergy Verified 01/16/18 02:53 Physical Exam - Constitutional Appears: No Acute Distress - Head Exam Head Exam: NORMAL INSPECTION - Eye Exam Eye Exam: PERRL - ENT Exam ENT Exam: Normal Exam - Neck Exam Neck exam: Positive for: Normal Inspection - Respiratory Exam Respiratory Exam: Clear to Auscultation Bilateral - Cardiovascular Exam Cardiovascular Exam: REGULAR RHYTHM - GI/Abdominal Exam GI & Abdominal Exam: Normal Bowel Sounds, Soft - Extremities Exam Extremities exam: Positive for: normal inspection - Back Exam Back exam: NORMAL INSPECTION - Neurological Exam Neurological exam: Alert, Oriented x3 - Psychiatric Exam Psychiatric exam: Normal Mood - Skin Skin Exam: Warm Results - Vital Signs Recent Vital Signs: Last Vital Signs Temp 98.6 F 01/16/18 16:23 Pulse 79 01/16/18 16:23 Resp 20 01/16/18 16:23 BP 117/72 01/16/18 16:23 Pulse Ox 96 01/16/18 16:23 reviewed Nghia - Labs Result Diagrams: 01/17/18 04:20 01/17/18 04:20 Labs: Laboratory Results - last 24 hr 01/16/18 01/16/18 01/16/18 03:13 03:39 03:39 WBC RBC Hgb Hct MCV MCH MCHC RDW Plt Count MPV Neut % (Auto) Lymph % (Auto) [place] % (Auto) Eos % (Auto) Baso % (Auto) Neut # (Auto) Lymph # (Auto) [place] # (Auto) Eos # (Auto) Baso # (Auto) Sodium 140 Potassium 4.6 Chloride 106 Carbon Dioxide 21 L Anion Gap 18 BUN 22 H Creatinine 0.8 Est GFR ( Amer) > 60 Est GFR (Non-Af Amer) > 60 POC Glucose (mg/dL) 127 H Random Glucose 122 H Calcium 9.3 Magnesium 2.0 Total Bilirubin 0.7 AST 52 ALT 26 Alkaline Phosphatase 101 Troponin I < 0.0120 Total Protein 8.6 H Albumin 4.4 Globulin 4.1 H Albumin/Globulin Ratio 1.1 Urine Color Urine Clarity Urine pH Ur Specific [place] Urine Protein Urine Glucose (UA) Urine Ketones Urine Blood Urine Nitrate Urine Bilirubin Urine Urobilinogen Ur Leukocyte Esterase Urine RBC (Auto) Urine WBC Clumps (Auto) Urine Microscopic WBC Urine Bacteria Salicylates < 1.0 Urine Opiates Screen Urine Methadone Screen Acetaminophen < 10.0 L Ur Barbiturates Screen Ur Phencyclidine Scrn Ur Amphetamines Screen U Benzodiazepines Scrn U Oth Cocaine Metabols U Cannabinoids Screen Alcohol, Quantitative < 10 01/16/18 01/16/18 01/16/18 03:39 07:35 07:35 WBC 17.4 H D RBC 4.40 Hgb 12.9 Hct 38.6 MCV 87.8 D MCH 29.3 MCHC 33.4 RDW 14.9 H Plt Count 234 MPV 7.6 Neut % (Auto) 60.4 Lymph % (Auto) 30.8 [place] % (Auto) 7.7 Eos % (Auto) 0.3 Baso % (Auto) 0.8 Neut # (Auto) 10.5 H Lymph # (Auto) 5.4 H [place] # (Auto) 1.3 H Eos # (Auto) 0.0 Baso # (Auto) 0.1 Sodium Potassium Chloride Carbon Dioxide Anion Gap BUN Creatinine Est GFR ( Amer) Est GFR (Non-Af Amer) POC Glucose (mg/dL) Random Glucose Calcium Magnesium Total Bilirubin AST ALT Alkaline Phosphatase Troponin I Total Protein Albumin Globulin Albumin/Globulin Ratio Urine Color Yellow Urine Clarity Cloudy Urine pH 5.0 Ur Specific [place] 1.016 Urine Protein 30 Urine Glucose (UA) Neg Urine Ketones Trace Urine Blood Moderate Urine Nitrate Negative Urine Bilirubin Negative Urine Urobilinogen 0.2-1.0 Ur Leukocyte Esterase Large Urine RBC (Auto) 91 H Urine WBC Clumps (Auto) Few H Urine Microscopic WBC 234 H Urine Bacteria Occ H Salicylates Urine Opiates Screen Negative Urine Methadone Screen Negative Acetaminophen Ur Barbiturates Screen Negative Ur Phencyclidine Scrn Negative Ur Amphetamines Screen Negative U Benzodiazepines Scrn Negative U Oth Cocaine Metabols Negative U Cannabinoids Screen Negative Alcohol, Quantitative reviewed J.P. - EKG Data EKG comments: reviewed J.P. - Imaging and Cardiology Chest x-ray Status: Report reviewed by me (Nghia) Assessment & Plan (1) Medication overdose Status: Acute Priority: High (2) UTI (urinary tract infection) Status: Acute Priority: High (3) Altered mental status Status: Acute Priority: High Comment: 2nd to overdose. (4) Urinary retention Status: Acute Priority: High (5) Hx of seizure disorder Status: Chronic Priority: Medium - Assessment and Plan (Free Text) Plan: F/U U C-S, Keep in 1:1 observation, continue Ceftriaxone, Flomax and rest of tx. Psychiatric consult appreciated, Urology consult. - Date & Time Date: 01/16/18 Time: 10:30
[2018-01-16] MEDS: Lacosamide 50 MG Tab PO SCH (17:28)
[2018-01-17 05:30] LABS: HEMOGLOBIN 11.4 g/dL (12.0-18.0); MEAN CELL VOLUME 87.8 fl (80.0-94.0); MEAN CORPUSCULAR HEMOGLOBIN 29.6 pg (27.0-31.0); MEAN CORPUSCULAR HGB CONC 33.8 g/dL (33.0-37.0); RBC 3.86 Mil/uL (4.40-5.90); RED CELL DISTRIBUTION WIDTH 14.6 % (11.5-14.5); WHITE BLOOD COUNT 8.9 K/uL (4.8-10.8)
[2018-01-17 05:51] LABS: BLOOD UREA NITROGEN 18 mg/dl (9-20); CALCIUM 9.1 mg/dL (8.4-10.2); GFR NON-AFRICAN AMERICAN > 60
[2018-01-17] MEDS: Lacosamide 50 MG Tab PO SCH (08:51)
[2018-01-17] MEDS ORDERED: LEVETIRACETAM PO SCH ×2 (11:30→22:00)
--- NOTE | 2018-01-17 15:16 | CP.PCM.PN ---
Subjective - Date & Time of Evaluation Date of Evaluation: 01/17/18 - Subjective Subjective: F/U UTI. Medication Overdose. Pt awake, calm but refusing Flomax as per nurse, states it makes him sick. Objective - Vital Signs/Intake and Output Vital Signs (last 24 hours): Temp Pulse Resp BP Pulse Ox 98.7 F 60 18 100/65 96 01/17/18 11:47 01/17/18 11:47 01/17/18 11:47 01/17/18 11:47 01/17/18 11:47 - Medications Medications: Current Medications Ceftriaxone Sodium 1 gm/ (Sodium Chloride) 100 mls @ 100 mls/hr IVPB DAILY [facility]; Protocol Last Admin: 01/17/18 08:49 Dose: 100 mls/hr Levetiracetam (Keppra) 1,500 mg PO DAILY [facility] Last Admin: 01/17/18 11:04 Dose: 1,500 mg Levetiracetam (Keppra) 2,250 mg PO HS [facility] Tamsulosin HCl (Flomax) 0.4 mg PO BID [facility] Last Admin: 01/17/18 08:53 Dose: Not Given - Labs Labs: 01/17/18 04:20 01/17/18 04:20 - Constitutional Appears: No Acute Distress - Head Exam Head Exam: NORMAL INSPECTION - Eye Exam Eye Exam: PERRL - ENT Exam ENT Exam: Normal Exam - Neck Exam Neck Exam: Normal Inspection - Respiratory Exam Respiratory Exam: Clear to Ausculation Bilateral - Cardiovascular Exam Cardiovascular Exam: REGULAR RHYTHM - GI/Abdominal Exam GI & Abdominal Exam: Soft, Normal Bowel Sounds - Extremities Exam Extremities Exam: Normal Inspection - Back Exam Back Exam: NORMAL INSPECTION - Neurological Exam Neurological Exam: Alert, Oriented x3 - Psychiatric Exam Psychiatric exam: Normal Mood - Skin Skin Exam: Warm Assessment and Plan (1) Medication overdose Status: Acute (2) UTI (urinary tract infection) Status: Acute (3) Altered mental status Status: Acute (4) Urinary retention Status: Acute (5) Hx of seizure disorder Status: Chronic - Assessment and Plan (Free Text) Plan: Continue Ceftriaxone and rest of Tx.
--- NOTE | 2018-01-18 16:53 | CP.PCM.PN ---
Subjective - Date & Time of Evaluation Date of Evaluation: 01/18/18 - Subjective Subjective: F/U UTI. Substance abuse. Pt c/o of dizziness,unsteady gait. Objective - Vital Signs/Intake and Output Vital Signs (last 24 hours): Temp Pulse Resp BP Pulse Ox 98.8 F 61 20 96/62 L 96 01/18/18 12:51 01/18/18 12:51 01/18/18 12:51 01/18/18 12:51 01/18/18 12:51 Intake and Output: 01/18/18 01/18/18 06:59 18:59 Intake Total 200 Output Total 350 Balance -150 - Medications Medications: Current Medications Ceftriaxone Sodium 1 gm/ (Sodium Chloride) 100 mls @ 100 mls/hr IVPB DAILY [facility]; Protocol Last Admin: 01/18/18 08:48 Dose: 100 mls/hr Levetiracetam (Keppra) 1,500 mg PO DAILY [facility] Last Admin: 01/18/18 08:48 Dose: 1,500 mg Levetiracetam (Keppra) 2,250 mg PO HS [facility] Last Admin: 01/17/18 21:12 Dose: 2,250 mg Tamsulosin HCl (Flomax) 0.4 mg PO BID [facility] Last Admin: 01/18/18 16:00 Dose: Not Given - Labs Labs: 01/17/18 04:20 01/17/18 04:20 - Constitutional Appears: No Acute Distress - Head Exam Head Exam: NORMAL INSPECTION - Eye Exam Eye Exam: PERRL - ENT Exam ENT Exam: Normal Exam - Neck Exam Neck Exam: Normal Inspection - Respiratory Exam Respiratory Exam: Clear to Ausculation Bilateral - Cardiovascular Exam Cardiovascular Exam: REGULAR RHYTHM - GI/Abdominal Exam GI & Abdominal Exam: Soft, Normal Bowel Sounds - Extremities Exam Extremities Exam: Normal Inspection - Back Exam Back Exam: NORMAL INSPECTION - Neurological Exam Neurological Exam: Alert, Oriented x3 Additional comments: Gait no tested - Psychiatric Exam Psychiatric exam: Normal Mood - Skin Skin Exam: Warm Assessment and Plan (1) Medication overdose Status: Acute (2) UTI (urinary tract infection) Status: Acute (3) Altered mental status Status: Acute (4) Urinary retention Status: Acute (5) Hx of seizure disorder Status: Chronic - Assessment and Plan (Free Text) Plan: Continue Ceftriaxone, Flomax, Keppra and rest of Tx.
--- NOTE | 2018-01-19 15:49 | CP.PCM.PN ---
Subjective - Date & Time of Evaluation Date of Evaluation: 01/19/18 - Subjective Subjective: F/U UTI No abdominal pain, c/o of constipation, dizziness. Objective - Vital Signs/Intake and Output Vital Signs (last 24 hours): Temp Pulse Resp BP Pulse Ox 98.5 F 70 18 109/68 94 L 01/19/18 12:09 01/19/18 12:09 01/19/18 12:09 01/19/18 12:09 01/19/18 12:09 Intake and Output: 01/19/18 01/19/18 06:59 18:59 Intake Total 0 Output Total 600 Balance -600 - Medications Medications: Current Medications Ceftriaxone Sodium 1 gm/ (Sodium Chloride) 100 mls @ 100 mls/hr IVPB DAILY [facility]; Protocol Last Admin: 01/19/18 09:27 Dose: 100 mls/hr Levetiracetam (Keppra) 1,500 mg PO DAILY [facility] Last Admin: 01/19/18 09:24 Dose: 1,500 mg Levetiracetam (Keppra) 2,250 mg PO HS [facility] Last Admin: 01/18/18 21:52 Dose: 2,250 mg Tamsulosin HCl (Flomax) 0.4 mg PO BID [facility] Last Admin: 01/19/18 09:24 Dose: Not Given - Labs Labs: 01/17/18 04:20 01/17/18 04:20 - Constitutional Appears: No Acute Distress - Head Exam Head Exam: NORMAL INSPECTION - Eye Exam Eye Exam: PERRL - ENT Exam ENT Exam: Normal Exam - Neck Exam Neck Exam: Normal Inspection - Respiratory Exam Respiratory Exam: Clear to Ausculation Bilateral - Cardiovascular Exam Cardiovascular Exam: REGULAR RHYTHM - GI/Abdominal Exam GI & Abdominal Exam: Soft, Normal Bowel Sounds - Extremities Exam Extremities Exam: Normal Inspection - Back Exam Back Exam: NORMAL INSPECTION - Neurological Exam Neurological Exam: Alert, Awake, Oriented x3 - Psychiatric Exam Psychiatric exam: Normal Mood - Skin Skin Exam: Warm Assessment and Plan (1) Medication overdose Status: Acute (2) UTI (urinary tract infection) Status: Acute (3) Altered mental status Status: Acute (4) Urinary retention Status: Acute (5) Hx of seizure disorder Status: Chronic - Assessment and Plan (Free Text) Plan: Continue Ceftriaxone, Flomax, Lactulose and rest of tx.
--- NOTE | 2018-01-20 08:28 | CON ---
DATE: 01/17/2018 The patient was admitted through the emergency room with urinary retention. They were unable to put a catheter in him. The patient was brought up to the floor, and a bladder scan revealed the patient had 700 mL urine in his bladder. The patient was followed closely because he had an overdose of Klonopin and . At this time, it is 01/17/2018 at 12 p.m. The patient now is taking Flomax b.i.d., and is voiding well and only retaining approximately 200 mL. The patient is comfortable with this. The patient will be followed into [facility] for further treatment, but urologically the patient is stable and is told to maintain Flomax 0.4 mg b.i.d. Earl Martino MD
[2018-01-20 12:12] LABS: HEMOGLOBIN 12.6 g/dL (12.0-18.0); MEAN CELL VOLUME 86.9 fl (80.0-94.0); MEAN CORPUSCULAR HGB CONC 34.5 g/dL (33.0-37.0); RBC 4.2 Mil/uL (4.40-5.90); RED CELL DISTRIBUTION WIDTH 14.5 % (11.5-14.5); WHITE BLOOD COUNT 6.9 K/uL (4.8-10.8)
--- NOTE | 2018-01-20 18:01 | CP.PCM.PN ---
Subjective - Date & Time of Evaluation Date of Evaluation: 01/20/18 - Subjective Subjective: F/U UTI Objective - Vital Signs/Intake and Output Vital Signs (last 24 hours): Temp Pulse Resp BP Pulse Ox 98.7 F 67 20 110/72 96 01/20/18 16:21 01/20/18 16:21 01/20/18 16:21 01/20/18 16:21 01/20/18 16:21 Intake and Output: 01/20/18 01/20/18 06:59 18:59 Intake Total 250 Balance 250 - Medications Medications: Current Medications Ceftriaxone Sodium 1 gm/ (Sodium Chloride) 100 mls @ 100 mls/hr IVPB DAILY [facility]; Protocol Last Admin: 01/20/18 09:22 Dose: 100 mls/hr Levetiracetam (Keppra) 1,500 mg PO DAILY [facility] Last Admin: 01/20/18 09:21 Dose: 1,500 mg Levetiracetam (Keppra) 2,250 mg PO HS [facility] Last Admin: 01/19/18 21:50 Dose: 2,250 mg Tamsulosin HCl (Flomax) 0.4 mg PO BID [facility] Last Admin: 01/20/18 16:10 Dose: Not Given - Labs Labs: 01/20/18 11:48 01/17/18 04:20 - Constitutional Appears: No Acute Distress - Head Exam Head Exam: NORMAL INSPECTION - Eye Exam Eye Exam: PERRL - ENT Exam ENT Exam: Normal Exam - Neck Exam Neck Exam: Normal Inspection - Respiratory Exam Respiratory Exam: NORMAL BREATHING PATTERN - Cardiovascular Exam Cardiovascular Exam: REGULAR RHYTHM - GI/Abdominal Exam GI & Abdominal Exam: Soft, Normal Bowel Sounds - Extremities Exam Extremities Exam: Normal Inspection - Back Exam Back Exam: NORMAL INSPECTION - Neurological Exam Neurological Exam: Alert, Awake, Oriented x3. absent: Motor Sensory Deficit - Psychiatric Exam Psychiatric exam: Normal Mood - Skin Skin Exam: Warm Assessment and Plan (1) Medication overdose Status: Acute (2) UTI (urinary tract infection) Status: Acute (3) Altered mental status Status: Acute (4) Urinary retention Status: Acute (5) Hx of seizure disorder Status: Chronic
[2018-01-21 00:13] VITALS: BP 109/68; PULSE 70; RESP 18; TEMP 97.9; O2SAT 99
--- NOTE | 2018-01-21 06:53 | CARD ---
APPROVED REPORT Date of service: 01/20/2018 EKG Measurement Heart [id number] <Conclusion> Normal sinus rhythm Normal ECG
--- NOTE | 2018-01-22 10:11 | CP.PCM.DIS ---
Provider - Provider Date of Admission: 01/16/18 05:51 Attending physician: Daon Vivas MD Consults: Urology-Dr. Martino Podiatry-Dr. Zheng Psychiatry-Dr. Beard Time Spent in preparation of Discharge (in minutes): 30 Diagnosis - Discharge Diagnosis (1) Medication overdose Status: Acute Priority: High (2) UTI (urinary tract infection) Status: Acute Priority: High (3) Altered mental status Status: Acute Priority: High (4) Urinary retention Status: Acute Priority: High (5) Hx of seizure disorder Status: Chronic Priority: Medium Hospital Course - Lab Results Lab Results: Micro Results 01/17/18 11:00 Urine,Clean Catch Urine Culture - Final Enterococcus Faecalis Most Recent Lab Values WBC 6.9 K/uL (4.8-10.8) 01/20/18 11:48 RBC 4.20 Mil/uL (4.40-5.90) L 01/20/18 11:48 Hgb 12.6 g/dL (12.0-18.0) 01/20/18 11:48 Hct 36.5 % (35.0-51.0) 01/20/18 11:48 MCV 86.9 fl (80.0-94.0) 01/20/18 11:48 MCH 30.0 pg (27.0-31.0) 01/20/18 11:48 MCHC 34.5 g/dL (33.0-37.0) 01/20/18 11:48 RDW 14.5 % (11.5-14.5) 01/20/18 11:48 Plt Count 208 K/uL (130-400) 01/20/18 11:48 MPV 7.6 fl (7.2-11.7) 01/16/18 03:39 Neut % (Auto) 60.4 % (50.0-75.0) 01/16/18 03:39 Lymph % (Auto) 30.8 % (20.0-40.0) 01/16/18 03:39 [place] % (Auto) 7.7 % (0.0-10.0) 01/16/18 03:39 Eos % (Auto) 0.3 % (0.0-4.0) 01/16/18 03:39 Baso % (Auto) 0.8 % (0.0-2.0) 01/16/18 03:39 Neut # (Auto) 10.5 K/uL (1.8-7.0) H 01/16/18 03:39 Lymph # (Auto) 5.4 K/uL (1.0-4.3) H 01/16/18 03:39 [place] # (Auto) 1.3 K/uL (0.0-0.8) H 01/16/18 03:39 Eos # (Auto) 0.0 K/uL (0.0-0.7) 01/16/18 03:39 Baso # (Auto) 0.1 K/uL (0.0-0.2) 01/16/18 03:39 Sodium 141 mmol/l (132-148) 01/17/18 04:20 Potassium 3.9 MMOL/L (3.6-5.0) 01/17/18 04:20 Chloride 109 mmol/L (98-107) H 01/17/18 04:20 Carbon Dioxide 28 mmol/L (22-30) 01/17/18 04:20 Anion Gap 8 (10-20) L 01/17/18 04:20 BUN 18 mg/dl (9-20) 01/17/18 04:20 Creatinine 0.6 mg/dl (0.8-1.5) L 01/17/18 04:20 Est GFR ( Amer) > 60 01/17/18 04:20 Est GFR (Non-Af Amer) > 60 01/17/18 04:20 POC Glucose (mg/dL) 127 mg/dL (65-110) H 01/16/18 03:13 Random Glucose 100 mg/dL (75-110) 01/17/18 04:20 Calcium 9.1 mg/dL (8.4-10.2) 01/17/18 04:20 Magnesium 2.0 MG/DL (1.6-2.3) 01/16/18 03:39 Total Bilirubin 0.7 mg/dl (0.2-1.3) 01/16/18 03:39 AST 52 U/L (17-59) 01/16/18 03:39 ALT 26 U/L (21-72) 01/16/18 03:39 Alkaline Phosphatase 101 U/L (38-126) 01/16/18 03:39 Troponin I < 0.0120 ng/mL (0.00-0.120) 01/16/18 03:39 Total Protein 8.6 G/DL (6.3-8.2) H 01/16/18 03:39 Albumin 4.4 g/dL (3.5-5.0) 01/16/18 03:39 Globulin 4.1 gm/dL (2.2-3.9) H 01/16/18 03:39 Albumin/Globulin Ratio 1.1 (1.0-2.1) 01/16/18 03:39 Urine Color Yellow (YELLOW) 01/16/18 07:35 Urine Clarity Cloudy (Clear) 01/16/18 07:35 Urine pH 5.0 (5.0-8.0) 01/16/18 07:35 Ur Specific Turner 1.016 (1.003-1.030) 01/16/18 07:35 Urine Protein 30 mg/dL (NEGATIVE) 01/16/18 07:35 Urine Glucose (UA) Neg mg/dL (Normal) 01/16/18 07:35 Urine Ketones Trace mg/dL (NEGATIVE) 01/16/18 07:35 Urine Blood Moderate (NEGATIVE) 01/16/18 07:35 Urine Nitrate Negative (NEGATIVE) 01/16/18 07:35 Urine Bilirubin Negative (NEGATIVE) 01/16/18 07:35 Urine Urobilinogen 0.2-1.0 mg/dL (0.2-1.0) 01/16/18 07:35 Ur Leukocyte Esterase Large [place]/uL (Negative) 01/16/18 07:35 Urine RBC (Auto) 91 /hpf (0-3) H 01/16/18 07:35 Urine WBC Clumps (Auto) Few /hpf (NONE) H 01/16/18 07:35 Urine Microscopic WBC 234 /hpf (0-5) H 01/16/18 07:35 Urine Bacteria Occ (<OCC) H 01/16/18 07:35 Salicylates < 1.0 mg/dl 01/16/18 03:39 Urine Opiates Screen Negative (NEGATIVE) 01/16/18 07:35 Urine Methadone Screen Negative (NEGATIVE) 01/16/18 07:35 Acetaminophen < 10.0 ug/ml (10.0-30.0) L 01/16/18 03:39 Ur Barbiturates Screen Negative (NEGATIVE) 01/16/18 07:35 Levetiracetam 38.7 mcg/mL 01/16/18 12:39 Ur Phencyclidine Scrn Negative (NEGATIVE) 01/16/18 07:35 Ur Amphetamines Screen Negative (NEGATIVE) 01/16/18 07:35 U Benzodiazepines Scrn Negative (NEGATIVE) 01/16/18 07:35 U Oth Cocaine Metabols Negative (NEGATIVE) 01/16/18 07:35 U Cannabinoids Screen Negative (NEGATIVE) 01/16/18 07:35 Alcohol, Quantitative < 10 mg/dl (0-10) 01/16/18 03:39 - Date & Time of H&P Date of H&P: 01/16/18 Time of H&P: 10:30 Discharge Exam - Head Exam Head Exam: NORMAL INSPECTION Discharge Plan - Discharge Medications Prescriptions: Levofloxacin [Levaquin] 500 mg PO DAILY #7 tablet - Follow Up Plan Condition: STABLE Disposition: DISCHARGE TO [facility]
--- NOTE | 2018-01-29 14:01 | PQF ---
PROVIDER RESPONSE TEXT: Provider was unable to determine a response for this query. REVIEWER QUERY TEXT: Documentation Clarification Your help is requested in clarifying the following clinical documentation, if you can please further specify in the medical record and discharge summary medication pt overdosed on. The patient's Clinical Indicators include: ER Physician Documentation Report documented "overdose of clonazepam." 01/[address] Martino "overdose of Klonopin." History and Physical "overdose on 20 tabs of over the counter sleeping pills (unknown name) Query created by: Ivette Castro on 01/21/2018 4:00 PM Electronically signed by: Dano Vivas MD 01/29/2018 1:58 PM
== END 2018-01-21 01:45 | DRG 918 ==
LOC: H.ER 02:32 → H.ERHOLD 05:51 → H.TEL 09:40
PROVIDERS: ADMIT Internal Medicine Pulmonary Disease; ATTEND Internal Medicine Pulmonary Disease
DX: T50.902A Poisoning by unspecified drugs, medicaments and biological substances, intentional self-harm, initial encounter (principal); N39.0 Urinary tract infection, site not specified; G40.909 Epilepsy, unspecified, not intractable, without status epilepticus; R41.82 Altered mental status, unspecified; R33.8 Other retention of urine; M79.606 Pain in leg, unspecified; F32.9 Major depressive disorder, single episode, unspecified; F41.9 Anxiety disorder, unspecified; I45.81 Long QT syndrome; R26.81 Unsteadiness on feet; K59.00 Constipation, unspecified